=== PATIENT | female | born 1990 | race American Indian/Alaskan Native ===

== ENCOUNTER 2017-12-04 13:02 | Emergency (ER) | payer OTHER ==
[2017-12-04 13:15] VITALS: BP 128/91
[2017-12-04] MEDS ORDERED: NORCO 5/325 PO STA (14:12)
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
== END 2017-12-04 16:07 ==
LOC: ED 13:02
DX: S60.812A Abrasion of left wrist, initial encounter (principal); S20.312A Abrasion of left front wall of thorax, initial encounter; M25.512 Pain in left shoulder; V49.49XA Driver injured in collision with other motor vehicles in traffic accident, initial encounter; Y93.89 Activity, other specified; Y92.89 Other specified places as the place of occurrence of the external cause; Y99.8 Other external cause status